=== PATIENT | female | born 1940 | race Caucasian/White ===

== ENCOUNTER → 2024-05-25 11:52 | Outpatient (REF) | payer OTHER, SELFPAY | LOC: HWRAD 11:52 | PROVIDERS: ATTENDING PHYSICIAN Internal Medicine Geriatric Medicine | DX: M19.90 Unspecified osteoarthritis, unspecified site (principal) | CPT/HCPCS: 73560; 73565 ==

== ENCOUNTER → 2024-08-14 16:43 | Outpatient (REF) | payer OTHER, SELFPAY | LOC: HWRAD 16:43 | PROVIDERS: ATTENDING PHYSICIAN Nurse Practitioner Adult Health; FAMILY PHYSICIAN Internal Medicine Geriatric Medicine | DX: M79.671 Pain in right foot (principal) | CPT/HCPCS: 73630 ==

== ENCOUNTER → 2024-10-29 13:25 | Outpatient (REF) | payer OTHER, SELFPAY | LOC: HWRAD 13:25 | PROVIDERS: ATTENDING PHYSICIAN Internal Medicine; FAMILY PHYSICIAN Internal Medicine Geriatric Medicine | DX: M25.571 Pain in right ankle and joints of right foot (principal) | CPT/HCPCS: 73610 ==

== ENCOUNTER → 2024-11-06 15:08 | Outpatient (REF) | payer OTHER, SELFPAY | LOC: HWRAD 15:08 | PROVIDERS: ATTENDING PHYSICIAN Internal Medicine Geriatric Medicine | DX: M19.90 Unspecified osteoarthritis, unspecified site (principal); M25.552 Pain in left hip | CPT/HCPCS: 73522 ==

== ENCOUNTER → 2024-11-18 09:31 | Outpatient (REF) | payer OTHER, SELFPAY | LOC: HWRAD 09:31 | PROVIDERS: ATTENDING PHYSICIAN Internal Medicine Geriatric Medicine | DX: M51.9 Unspecified thoracic, thoracolumbar and lumbosacral intervertebral disc disorder (principal) | CPT/HCPCS: 72100 ==

== ENCOUNTER → 2025-02-04 11:46 | Outpatient (REF) | payer OTHER, SELFPAY | LOC: PAVMRI 11:46 | PROVIDERS: ATTENDING PHYSICIAN Internal Medicine Geriatric Medicine | DX: D18.09 Hemangioma of other sites (principal); M54.31 Sciatica, right side | CPT/HCPCS: 72158; A9575 ==

== ENCOUNTER → 2025-02-15 07:18 | Outpatient (REF) | payer OTHER, SELFPAY | LOC: HWRAD 07:18 | PROVIDERS: ATTENDING PHYSICIAN Student in an Organized Health Care Education/Training Program | DX: I10 Essential (primary) hypertension (principal) | CPT/HCPCS: 93975 ==

== ENCOUNTER 2025-05-10 01:17 | Inpatient (IN) | payer OTHER, SELFPAY ==
[2025-05-09 19:43] VITALS: BP 131/85
[2025-05-09 20:49] VITALS: BMI 27.5
--- NOTE | 2025-05-09 20:50 | EDRN ---
Pt reports urinary urgency yesterday and blood in uirne, called Dr at [facility] and started on Macrobid. Pt has had 3 doses and noticed no blood hematuria. Pt reports developing a fever at home today of 102. Pt did not take any antipyretics for
the fever. Pt called [facility] physician and was advised to come to the ED. Pt with no other complaints. Pt without fever here in ED x 2.
[2025-05-09 21:45] LABS: Hematocrit 37.5 % (37.0-47.0); Hemoglobin 13.3 g/dL (12.0-16.0); Mean Corp Hgb Conc. 35.5 g/dL (33.0-37.0); Mean Corpuscular Volume 85.0 fL (81.0-99.0); Nucleated Red Blood Cells % 0 %; Platelet Count 209 10^3/uL (130-400); Red Cell Dist. Width 12.8 % (11.5-14.5)
--- NOTE | 2025-05-09 22:00 | ED.GENMED ---
History of Present Illness
General
Chief Complaint: Urinary Symptoms
Time Seen by Provider: 05/09/25 22:00
History of Present Illness
History of Present Illness:
FOCUSED PAST MEDICAL HISTORY
- High blood pressure
REVIEW OF OLD RECORDS
- No old records available for review in [facility]
Note:
CHIEF COMPLAINT(S)
Difficulty urinating, hematuria, fever, and vomiting.
HISTORY OF PRESENT ILLNESS
The patient is an 84-year-old female with a reported history of previous urinary tract infections (UTIs) presenting with symptoms suggestive of a recurrent UTI. The patient began experiencing difficulty urinating and the presence of blood in her
urine on Saturday, which has led to concern for a UTI, a condition she has experienced thrice in the past four months. On Saturday, she experienced two episodes of hematuria, first at 12 PM and then at 1 PM. In response, a doctor at her residence
prescribed nitrofurantoin for a presumed UTI, of which she has taken three doses.
The patient sought emergency care due to the onset of a fever of 102�F at 4 PM, coupled with an episode of vomiting following fluid intake. She has experienced intense thirst but has been reluctant to drink further before evaluation. The patient
reports having difficulty holding urine despite the urge. She has not had a definitive urinalysis or urine culture since the onset of her current symptoms and previously had a urinalysis indicative of infection but with undetermined urine culture
results. The patient is concerned about her third infection in a short duration and is open to a catheterized urine specimen if necessary for accurate analysis.
Her blood pressure medication includes diltiazem and hydrochlorothiazide. She has not experienced any mental status changes or confusion; however, she reports a previous episode of confusion related to a UTI in the past. Laboratory findings from the
ED show a sodium level of 124, with a known history of lower sodium levels in the past, attributed potentially to chronic use of hydrochlorothiazide.
ALLERGIES
Allergic to Ciprofloxacin.
MEDICATIONS
- Nitrofurantoin
- Diltiazem (12-hour formulation) � specific dose not specified
- Atenolol 50 mg, twice a day
- Losartan potassium
- Hydrochlorothiazide (noted to potentially cause hyponatremia; recommendation to discontinue)
- Acetaminophen 650 mg
PHYSICAL EXAM
General: Alert, no acute distress.
Skin: Warm, dry.
Head: Normocephalic, atraumatic.
Neck: Supple, trachea midline.
Eye Ears, nose, mouth and throat: Oral mucosa moist.
Cardiovascular: Normal peripheral perfusion, No edema.
Respiratory: Respirations are non-labored.
Gastrointestinal: Abdomen nondistended. No abdominal tenderness
Back: Normal range of motion, Normal alignment.
Musculoskeletal: Normal ROM, normal strength.
Neurological: Alert and oriented to person, place, time, and situation, No focal neurological deficit observed.
Psychiatric: Cooperative, appropriate mood & affect. Excellent mental status, no confusion
PROBLEM LIST
Acute Problems:
- Urinary tract infection
- Fever
- Hyponatremia
- Vomiting
Chronic Problems:
- Hypertension
PLAN
- Obtain catheterized urine specimen for accurate urinalysis and culture.
- Initiate blood cultures to rule out potential bloodstream infection due to persistent fever.
- Monitor and manage hyponatremia potentially exacerbated by hydrochlorothiazide; discontinue use of hydrochlorothiazide.
- Continue nitrofurantoin for presumed UTI, pending culture results.
- Reassess fluid and sodium levels to manage current mild hyponatremia.
- Monitor and address any recurrence or persistence of fever with further investigation, if necessary.
DIFFERENTIAL DIAGNOSIS
The Differential Diagnosis includes, in no particular order and is not limited to:
- Lower urinary tract infection
- Pyelonephritis
- Urosepsis
- Medication-induced hyponatremia (due to hydrochlorothiazide)
- Dehydration or overhydration affecting sodium balance
- Nephrolithiasis
- Interstitial cystitis
- Urinary retention due to medication effect
- Hematuria secondary to anticoagulation (though no current use reported)
- Fever of unknown origin linked to systemic infection
Disposition:
SUMMARY OF ENCOUNTER
The patient, an 84-year-old female, presented to the emergency department with symptoms suggestive of a urinary tract infection (UTI), including increased white blood cells in the urine analysis. The patient has been experiencing low sodium levels,
reported at 124 mEq/L, which is concerning. She has a history of lower sodium attributed to chronic hydrochlorothiazide use, likely exacerbated by recent vomiting. Nitrofurantoin has already been initiated by the patient herself for the presumed
UTI. Due to the complexity of managing the low sodium and pending urine culture results, the decision was made to admit the patient for further evaluation and management by the internal medicine team. The patients current symptoms and test results,
particularly the significant hyponatremia, necessitate close monitoring in the hospital setting.
DISPOSITION
Admit.
ASSESSMENT
The patient is assessed with a presumptive urinary tract infection awaiting urine culture confirmation, coupled with significant hyponatremia that requires inpatient management to address potential complications from both the infection and
hyponatremia.
PLAN
- Admit the patient to the hospital for further evaluation and management by the internal medicine team.
- Continue intravenous antibiotic treatment for the UTI.
- Monitor the patients sodium levels closely and manage hyponatremia to prevent potential complications.
- Await urine culture results to confirm the diagnosis and guide antibiotic therapy.
- Use non-invasive urine collection with the [employer] system to manage urinary output.
MEDICAL DECISION MAKING
- Number and Complexity of Problems Addressed: Chronic conditions affecting care include recurrent urinary tract infections and hyponatremia. Differential diagnosis considerations include lower urinary tract infection, medication-induced
hyponatremia, dehydration, and urinary retention.
- Data:
- Category 1: The urine analysis indicated an increased number of white blood cells suggestive of an infection, and hyponatremia was confirmed with sodium levels of 124 mEq/L.
- Category 2: Not applicable.
- Category 3: Discussion of management with the internal medicine team regarding admission and management plan for hyponatremia and UTI.
- Risk: Due to the significant hyponatremia and need for close monitoring, the decision was made to admit the patient to the hospital. Prescription drug management included continuing nitrofurantoin and administering intravenous antibiotics.
LABS
- White count 14.7
- Sodium 124
- Urinalysis 16-20 white cells per high-power field but also has increased number of squamous epithelial cells
UPDATE
- Leukocytosis is noted and she reportedly had a temperature of over 102 earlier today. She is afebrile currently and is not tachycardic and is normotensive.
- Lactic is 1.7
- Sodium is 124 and reportedly was 'just slightly low in the past'�she is on hydrochlorothiazide and was reportedly vomiting earlier suspect hypovolemic hypotonic hyponatremia
- As she has been vomiting earlier and remains to have symptoms despite being on outpatient oral antibiotics, will plan admission to the hospital for further evaluation of hyponatremia and IV antibiotics for presumed UTI failing outpatient management
Phy Exam
Physical Exam
Physical Exam:
See HPI
Course
Orders/Labs/Results
Orders:
Orders
05/09/25 21:38
Complete Blood Count/With Diff Urgent
Comprehensive Metabolic Panel Urgent
Serum Osmolality Urgent
Comment: ADD ON
05/09/25 22:13
Add On- LAB Urgent
Tests Added?: serum osm
Straight cath- Treatment ONCE
0.9% Sodium Chloride 500 ml [Nss] 500 ml IV BOLUS
05/09/25 22:33
Lactic Acid Q4H
Comment: CANCEL 2nd LACTIC ACID IF 1st LACTIC ACID IS LESS THAN 2
Urinalysis Reflex To Culture Urgent
Date Specimen was Collected: 05/09/25
Time Specimen was Collected: 21:31
Urine Microscopic Reflex Cult Urgent
Urine Osmolality Random [Osmolality, Random Urine] Urgent
Date Specimen was Collected: 05/09/25
Time Specimen was Collected: 22:16
Urine Sodium Urgent
Date Specimen was Collected: 05/09/25
Time Specimen was Collected: 22:16
Blood Culture Q30M
[facility] Source: Blood/Venous
Specimen Description:
Blood Culture Q30M
[facility] Source: Blood/Venous
Specimen Description:
Urine Culture Urgent
[facility] Source: U
Specimen Description:
Date Specimen was Collected: 05/09/25
Time Specimen was Collected: 21:31
05/09/25 22:53
CefTRIAXone [Rocephin] 1,000 mg IV NOW STA
05/10/25 02:15
Lactic Acid Q4H
Comment: CANCEL 2nd LACTIC ACID IF 1st LACTIC ACID IS LESS THAN 2
Abnormal Lab Results
05/09/25 05/09/25
21:38 22:33
WBC 14.7 H 10^3/uL
(4.8-10.8)
Abs Immat Gran (auto) 0.1 H 10^3/uL
(0-0.05)
Absolute Neuts (auto) 13.0 H 10^3/uL
(1.4-6.5)
Absolute Lymphs (auto) 0.9 L 10^3/uL
(1.2-3.4)
Neutrophils % 88.3 H %
(42.2-75.2)
Lymphocytes % 6.1 L %
(20.5-51.1)
Sodium 124 L mmol/L
(135-145)
Chloride 93 L mmol/L
(98-107)
Glucose 116 H mg/dl
(70-99)
Serum Osmolality 263 L mOsm/kg
(275-300)
Total Bilirubin 1.7 H mg/dl
(0.2-1.3)
AST 38 H U/L
(14-36)
ALT 41 H U/L
(0-35)
Ur Occult Blood Reflex 1+ A
(Negative)
Urine RBC 3-6 A /HPF
(0-2)
Urine WBC (Reflex) 16-20 A /HPF
(0-5)
Urine Bacteria (Reflex) Few A
(Negative)
Urine Osmolality 248 L mOsm/kg
(300-900)
Urine Sodium 10 L mmol/L
(30-90)
Urine Albumin (Reflex) 1+ A
(Neg - Trace)
05/09/25 21:38
05/09/25 21:38
Vital Signs
Initial and Last Documented VS:
Initial Vital Signs
Temp Pulse Resp BP Pulse Ox
37.3 C 81 16 131/85 96
05/09/25 19:43 05/09/25 19:43 05/09/25 19:43 05/09/25 19:43 05/09/25 19:43
Last Documented Vital Signs
Temp Pulse Resp BP Pulse Ox
37.0 C 74 20 143/66 98
05/09/25 22:57 05/09/25 22:57 05/09/25 22:57 05/09/25 22:57 05/09/25 22:57
*Pulse Oximetry
SaO2: 96
Oxygen Mode of Delivery: Room air
Patient hypoxic: no
*Critical Care Note
Total Time (30-74mins, 75-104mins- exclusive of procedures): Not Applicable
ED Attending Note
-
Portions of this chart may have been created with voice recognition software.� Occasional wrong word or��sound alike� substitutions may have occurred due to the inherent limitations of voice recognition software.
Discharge Plan
Departure
Patient Disposition: Admit
Date of Disposition: 05/09/25
Time of Disposition: 23:21
Presentation/result/management discussed w/ accepting MD/DO: Hospitalist
Discharge Problem:
Acute hyponatremia
Referrals:
Raul Sanchez DO [Family Provider, Family Practice]
Interventions
Interventions:
*Risk Screen - Suicide Last Done: 05/09/25 19:43
*General Assessment Last Done: 05/09/25 20:49
*Neglect/Abuse Screening Last Done: 05/09/25 19:43
*ED COVID-19 Vaccine History Last Done: 05/09/25 20:49
*ED Influenza Vaccine History Last Done: 05/09/25 20:49
[facility] Fall Risk Assessment Tool Last Done: 05/09/25 20:16
ED-Female Genitourinary Assessment Last Done: 05/09/25 20:49
Discharge Date and Time
Print Language: LATVIAN
[2025-05-09 22:03] LABS: ALT (SGPT) 41 U/L (0-35); AST (SGOT) 38 U/L (14-36); Albumin 4.4 g/dl (3.5-5.0); Alkaline Phosphatase 84 U/L (38-126); Blood Urea Nitrogen 16 mg/dl (7-17); Calcium 9.6 mg/dl (8.4-10.2); Carbon Dioxide 22 mmol/L (22-30); Chloride 93 mmol/L (98-107); Estimated Creatinine Clearance 53 ml/min; Glucose 116 mg/dl (70-99); Potassium 3.8 mmol/L (3.5-5.1); Sodium 124 mmol/L (135-145); Total Protein 7.5 g/dl (6.3-8.2); eGFR > 60.00
[2025-05-09] MEDS: NSS 500 IV (22:37)
[2025-05-09 22:44] LABS: Urine Character Clear (Clear)
[2025-05-09 22:51] LABS: Urine Squamous Cell 21-25 /LPF (Few); Urine White Cell 16-20 /HPF (0-5)
[2025-05-09 22:57] VITALS: BP 143/66
[2025-05-09] MEDS: ROCEPHIN 1000 MG IV (23:20)
[2025-05-10] VITALS (12 sets, daily range): BP systolic 118–141; BP diastolic 47–59; BMI 27.9
--- NOTE | 2025-05-10 01:13 | HPS.HSE ---
Family Physician
-
Family Physician: Raul Sanchez, DO
Chief Complaint
-
Urinary Symptoms, Fever
History of Present Illness
Patient is an 84y F with PMH significant for hypertension who presents to ED complaining of urinary symptoms x 2 days and fever. Patient states that she has had dysuria and bloody urine on three occasions over the past 4 months. She has been
treated for UTI each time with temporary improvement in her symptoms. Patient noted burning on urination / suprapubic pain beginning yesterday. She had two episodes of gross blood in the urine and contacted her PCP. She was prescribed Macrobid
and took two doses yesterday and one this AM. She states that the dysuria and bleeding seemed to improve. She was extremely fatigued however and slept for most of the day today.
This evening she felt warm and took her temperature at home. This measured 102 degrees. She presented to the ED for further evaluation and treatment.
Patient traveled to see family about 2 weeks ago and developed b/l LE swelling. Her PCP prescribed Lasix 20mg daily x 1 week which she has since completed. She is chronically on HCTZ.
Medical History
Past Medical History
Past Medical History: Reports Other
Additional Past Medical History:
Hypertension
Scoliosis
Past Surgical History: Reports Other
Additional Past Surgical History:
BSO
Spinal Fusion
Social History
Tobacco: Non-smoker
Alcohol: Occasional
Drug: None
Family History
Family History: Not pertinent
Allergies / Home Medications
Allergies reflects when Allergies were last updated in [facility].
Home Medications with original date entered in [facility]
Allergy/Medication List:
Allergies
Allergy/AdvReac Type Severity Reaction Status Date / Time
amlodipine Allergy Unknown Verified 05/09/25 19:42
bee venom protein (honey bee) Allergy Rash Verified 05/09/25 19:42
ciprofloxacin (From Cipro) Allergy Rash Verified 05/09/25 19:39
enalapril Allergy Shortness Verified 05/09/25 19:42
of Breath
estrogens, conjugated (From Allergy Unknown Verified 05/09/25 19:42
Premarin)
herbal drugs (From [facility]) Allergy Unknown Verified 05/09/25 19:42
hydralazine Allergy Unknown Verified 05/09/25 19:42
multivitamin with minerals Allergy Unknown Verified 05/09/25 19:42
(From [facility])
nebivolol (From [facility]) Allergy Unknown Verified 05/09/25 19:42
Home Medications
atenolol 50 mg tablet 50 mg PO BID 05/09/25
cholecalciferol (vitamin D3) 50 mcg (2,000 unit) tablet (Vitamin D3) 50 mcg PO DAILY 05/09/25
diltiazem HCl 120 mg capsule,extended release 12 hr 120 mg PO Q12H 05/09/25
epinephrine 0.3 mg/0.3 mL injection, auto-injector (EpiPen) 0.3 mg IM ONCE PRN anaphylaxis 05/09/25
estradiol 0.01% (0.1 mg/gram) vaginal cream 1 appful vaginal DAILY 05/09/25
hydrochlorothiazide 25 mg tablet 25 mg PO DAILY 05/09/25
losartan 50 mg tablet 50 mg PO QPM 05/09/25
rwmvtadj-snos-dlvn 8 mg-folic 400 mcg-K 50 mcg-lutein 300 mcg tablet (Centrum Silver Women) 1 tab PO DAILY 05/09/25
nitrofurantoin macrocrystal 100 mg capsule 100 mg PO BID 05/09/25
rosuvastatin 5 mg tablet 5 mg PO DAILY 05/09/25
tacrolimus 0.1 % topical ointment 1 applic topical DAILY PRN as needed 05/09/25
tretinoin 0.1 % topical cream 1 applic topical HS 05/09/25
triamcinolone acetonide 0.1 % topical cream 1 applic topical BID 05/09/25
Review of Systems
-
History Source: Patient
A 12 point ROS was completed and negative except as noted: Yes
Constitutional: Reports Fever and Fatigue; Denies Chills
EENT: Denies Sore Throat
Respiratory: Denies Cough or Trouble Breathing
Cardiac: Denies Chest Pain or Palpitations
Abdomen/GI: Denies Abdominal Pain, Nausea, Vomiting or Diarrhea
: Reports Dysuria, Frequency and Bleeding
Musculoskeletal: Reports Edema; Denies Joint Pain
Neurological: Denies Dizzy or Headache
Psych: Denies Depression or Anxiety
Physical Exam
Vital Signs
Vital Signs
Temp Pulse Resp BP Pulse Ox
98.3 F 73 22 131/55 97
05/10/25 00:47 05/10/25 00:47 05/10/25 00:47 05/10/25 00:46 05/10/25 00:45
Physical Exam
General: Other (84y F in no acute distress.)
HEENT: Moist mucous membranes and PERRLA
Respiratory: Clear; No Wheezes, Rales or Rhonchi
Cardiac: S1/S2 and Regular Rhythm; No Murmur
GI: Soft, Non Tender, Non Distended and Normal Bowel Sounds
Genito-urinary: No costovertebral tender
Musculoskeletal: No Clubbing, No Cyanosis and No Edema
Neuro: AO x 3
Laboratory Results
-
05/09/25 21:38
05/09/25 21:38
Laboratory Results
Lactic Acid Cancelled 05/10/25 02:15
Total Bilirubin 1.7 mg/dl (0.2-1.3) H 05/09/25 21:38
AST 38 U/L (14-36) H 05/09/25 21:38
ALT 41 U/L (0-35) H 05/09/25 21:38
Alkaline Phosphatase 84 U/L (38-126) 05/09/25 21:38
Impression/Plan
-
A/P: Patient is an 84y F with PMH significant for hypertension who presents to ED complaining of urinary symptoms and fever.
Recurrent UTI / Fever
- Admit of further evaluation and treatment.
- Fever / failed outpatient treatment of UTI and recent recurrent UTI (3 in 4 months).
- Check CT to rule out anatomic abnormality contributing to recurrent UTI, obstruction, etc.
- IV ceftriaxone pending culture data.
- Follow fever curve. Follow for clinical improvement.
Hyponatremia
- Likely due to combination HCTZ and Lasix over the past week or so.
- Hold diuretics acutely.
- Follow for improvement in Na levels.
Benign Hypertension
- Multidrug resistant hypertension
- Continue usual regimen (excepting HCTZ) with holding parameters.
DVT Prophylaxis: Lovenox
Code Status: Full
[2025-05-10 03:22] LABS: Hematocrit 36.1 % (37.0-47.0); Hemoglobin 12.4 g/dL (12.0-16.0); Mean Corp Hgb Conc. 34.3 g/dL (33.0-37.0); Mean Corpuscular Volume 85.7 fL (81.0-99.0); Platelet Count 207 10^3/uL (130-400); Red Cell Dist. Width 12.8 % (11.5-14.5)
--- NOTE | 2025-05-10 03:35 | PTCARENOTE ---
Received pt from ED @ 0230. AAOx3, VSS, afebrile. Medications brought from home sent to pharmacy. Pt denies pain @ this time. Discussed plan of care with pt. Verbalizes understanding. Plan of care ongoing. Call scanlon within reach.
[2025-05-10 03:46] LABS: Blood Urea Nitrogen 16 mg/dl (7-17); Calcium 9.1 mg/dl (8.4-10.2); Carbon Dioxide 24 mmol/L (22-30); Chloride 97 mmol/L (98-107); Estimated Creatinine Clearance 53 ml/min; Glucose 96 mg/dl (70-99); Potassium 3.5 mmol/L (3.5-5.1); Sodium 128 mmol/L (135-145); eGFR > 60.00
[2025-05-10] MEDS: VITAMIN D3 (cholecalciferol) 50 MCG PO (07:38)
[2025-05-10] MEDS: TENORMIN 50 MG PO ×2 (07:38→19:48)
[2025-05-10] MEDS: CARDIZEM CD 120 MG PO ×2 (07:38→19:47)
[2025-05-10] MEDS: CRESTOR 5 MG PO (07:40)
--- NOTE | 2025-05-10 09:19 | W.PN.HOSP.TC ---
Today's Communication/Plan
-
Antibiotics. Diuretics.
Assessment / Plan
Assessment / Plan
Physical exam:
General: Acutely ill. Nontoxic appearing
HEENT: Normocephalic, Atraumatic and Moist Mucous Membranes
Respiratory: Clear to Auscultation; Negative Wheezes, Rales or Rhonchi
Cardiac: Regular Rhythm and S1/S2
GI: Soft, Nontender and Nondistended
Musculoskeletal: No Clubbing, No Cyanosis and No Edema
Neuro: Awake, Alert and Oriented, no neurological deficit
Psych: Calm
A/P:
Recurrent UTI:
Continue IV ceftriaxone
Follow-up urine culture
CT of the abdomen with abnormalities likely related to infection--> will reach out to urology to see what they recommend.
Recommend outpatient urology eval for urodynamic studies
Shortness of breath and peripheral edema:
Concerns for heart failure
Obtain echocardiogram
Obtain chest x-ray
Obtain BNP
Diuresis as needed
Cardiology eval
Hyponatremia:
Discontinue HCTZ
Proceed to hyponatremia workup with serum osmolarity, urine osmolality, urine sodium, urine creatinine, TSH, and cortisol.
Hypertension:
Continue home antihypertensive
Hyperlipidemia:
Continue home statin
Chronic back pain:
Continue pain control
DVT prophylaxis:
Lovenox SQ
CODE STATUS:
Full code
Total time spent on today's encounter was 35 minutes which included time spent in counseling the patient/family regarding diagnosis and treatment plan as listed above, goals of care, and symptom management. Case was discussed with nursing staff,
specialists, and care coordinators/case management. All labs and imaging personally reviewed by me. Remainder the time spent in detailed review of previous records, lab data, imaging, and other medical provider documentation.
Anticipated Discharge: 24 - 48 hours
Subjective/Interval History
-
Date of Service: May 10, 2025
Patient does have peripheral edema and also urinary tract symptoms
Objective Data
-
Labs:
Laboratory Results
05/09/25 05/10/25
21:38 03:05
WBC 14.7 H 10.2
Hgb 13.3 12.4
Hct 37.5 36.1 L
Plt Count 209 207
Sodium 124 L 128 L
Potassium 3.8 3.5
Chloride 93 L 97 L
Carbon Dioxide 22 24
BUN 16 16
Creatinine 0.7 0.7
Glucose 116 H 96
Calcium 9.6 9.1
Total Bilirubin 1.7 H
AST 38 H
ALT 41 H
Alkaline Phosphatase 84
Vital Signs:
Vital Signs
Temp Pulse Resp BP Pulse Ox
98.1 F 78 17 141/54 98
05/10/25 07:34 05/10/25 01:09 05/10/25 07:34 05/10/25 07:34 05/10/25 07:34
--- NOTE | 2025-05-10 11:21 | CM ---
Reviewed chart. Met with Mrs. Bird to review discharge plans. She states prior to admission she resides alone in an apartment at [facility]. She states she has been there for seven years., She states prior to admission
she ambulates independent in the apartment and uses a single point cane for short distances , and uses a motorized wheelchair for long distances. She states she has a single point cane and motorized wheelchair at home. she states she has never
need VNA Services or been to SNF/Rehab. She states she has gone to outpatient therapy at [facility]. She states she has a prescription plan and uses [facility]. Medical work-up in progress. The discharge plan is to retunr to her
apartment at [facility] when medically stable.
--- NOTE | 2025-05-10 14:16 | CON.CAR ---
Addendum entered and electronically signed by Raul Durand MD 05/10/25 15:30:
84-year-old woman admitted with dysuria hematuria and fever, had been treated for lower extremity edema without dyspnea, evaluation in the emergency department revealed proBNP of 455 with chest x-ray suggesting congestive heart failure. Of note,
patient complains of lower extremity edema on diltiazem, but does not have complaints of shortness of breath, allergies include Nebivolol enalapril and amlodipine.
Outpatient meds: Atenolol 50 mg twice daily, diltiazem CD1 120 mg twice daily, hydrochlorothiazide 25 mg a day, losartan 100 mg daily,
Current meds: Atenolol 50 mg twice daily, diltiazem CD1 120 mg every 12, losartan 100 mg a day, rosuvastatin 5 mg daily, ceftriaxone 1000 mg daily, subcu Lovenox DVT prophylaxis and furosemide 40 mg IV daily
PMH: Hypertension, hyperlipidemia, scoliosis
PSH: Spinal fusion, retinal detachment, bilateral salpingoectomy
SH: , recently traveled to [facility]
141/54, pulse 78, weight is 67 kg, head neck exam unremarkable, lungs are clear, regular rate and rhythm without obvious murmurs or gallops abdomen benign extremities without clubbing cyanosis or edema
Chest x-ray: Probable vascular congestion, cardiomegaly, aortic atherosclerosis
White count 10.2, hemoglobin 12.4, sodium 128, had been 124 on admission potassium is 3.5, BUN/creatinine are 16 and 0.7, AST and ALT 38 and 41 respectively, free T4 is normal, TSH is 4.71,
CT of abdomen
ECG: Pending
Impression:
Possible HFpEF, with increased interstitial markings lung with proBNP 455
Hypertension
Hyponatremia on thiazide
Aortic atherosclerosis
Plan:
She presents with findings that could be consistent with heart failure, but her proBNP is not markedly elevated, and her chest x-ray findings could be consistent with heart failure, but we may need to consider pulmonary fibrosis as well. She
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
For now okay to continue IV Lasix, check echocardiogram.
Given hyponatremia, hydrochlorothiazide should be listed as an allergy.
She states that her blood pressure is elevated, will check plasma renin and Roney levels, the patient is currently on an ARB and also on a beta-shruthi. Spironolactone might be a good choice if she needs additional blood pressure agents and for
diagnosis of presumed HFpEF
If diagnosis of HFpEF stands up, she is a poor candidate for an SGLT2 antagonist given frequent urinary tract infections.
I will check a troponin x 1.
We can consider an outpatient ischemic evaluation.
Original Note:
Consultation
Consultation Request
Date/Time Consultation Requested: 05/10/2025
Date/Time Consultation Performed: 05/10/2025
Requesting Provider: Dr. Carmona
Performing Provider: Aurea Carson PA-C for Dr. EVANS Durand
Reason for Consultation: Possible acute HF
Medical History
-
History of Present Illness:
HPI: Florence is an 84 year old female with PMH of HTN, HLD, and scoliosis who presented to [facility] ER for evaluation of dysuria, hematuria, and fever. She had been seen by her PCP who started her on macrobid, but with fever, she came to ER for
evaluation. Also has noted a few weeks of increased LE edema. She states this started after she traveled to [facility] for [employer]. Initially felt it may have been related to a long day of travel but as edema persisted, when seen by PCP,
she was started on lasix 20mg daily in addition to her usual HCTZ. With this, she noted no significant improvement in her edema, and after 1 week was told to stop taking lasix. She also has been keeping her legs elevated and using compression
stockings without significant improvement. Denies noting SOB, but reports she does not exert herself significantly. No prior cardiac history and has never been seen by cardiology. Chest xray checked this admission and noted moderate pulmonary edema.
ProBNP 455. Cardiology consulted for evaluation of possible heart failure.
PMH:
HTN
HLD
Scoliosis
Past Medical History
Past Medical History: Other (In HPI)
Social History
Tobacco: Non-Smoker
Alcohol: Occasional
Drug: None
Employment: Retired
Family History
Family History: Reviewed & Not Pertinent
Allergies / Home Medications
Allergy/AdvReac Type Severity Reaction Status Date / Time
amlodipine Allergy Unknown Verified 05/09/25 19:42
bee venom protein (honey bee) Allergy Rash Verified 05/09/25 19:42
ciprofloxacin (From Cipro) Allergy Rash Verified 05/09/25 19:39
enalapril Allergy Shortness Verified 05/09/25 19:42
of Breath
estrogens, conjugated (From Allergy Unknown Verified 05/09/25 19:42
Premarin)
herbal drugs (From [facility]) Allergy Unknown Verified 05/09/25 19:42
hydralazine Allergy Unknown Verified 05/09/25 19:42
multivitamin with minerals Allergy Unknown Verified 05/09/25 19:42
(From [facility])
nebivolol (From Bystolic) Allergy Unknown Verified 05/09/25 19:42
�Medication �Instructions �Recorded �Confirmed �Type
atenolol 50 mg tablet 50 mg PO BID 05/09/25 05/09/25 History
cholecalciferol (vitamin D3) 50 50 mcg PO DAILY 05/09/25 05/09/25 History
mcg (2,000 unit) tablet (Vitamin
D3)
epinephrine 0.3 mg/0.3 mL 0.3 mg IM ONCE PRN anaphylaxis 05/09/25 05/09/25 History
injection, auto-injector (EpiPen)
estradiol 0.01% (0.1 mg/gram) 1 appful vaginal DAILY 05/09/25 05/09/25 History
vaginal cream
hydrochlorothiazide 25 mg tablet 25 mg PO DAILY 05/09/25 05/09/25 History
losartan 50 mg tablet 100 mg PO QPM 05/09/25 05/10/25 History
tpmahlim-zmvk-laud 8 mg-folic 400 1 tab PO DAILY 05/09/25 05/09/25 History
mcg-K 50 mcg-lutein 300 mcg tablet
(Centrum Silver Women)
nitrofurantoin macrocrystal 100 mg 100 mg PO BID 05/09/25 05/09/25 History
capsule
rosuvastatin 5 mg tablet 5 mg PO DAILY 05/09/25 05/09/25 History
tacrolimus 0.1 % topical ointment 1 applic topical DAILY PRN as 05/09/25 05/09/25 History
needed
tretinoin 0.1 % topical cream 1 applic topical HS 05/09/25 05/09/25 History
triamcinolone acetonide 0.1 % 1 applic topical BID 05/09/25 05/09/25 History
topical cream
diltiazem HCl 120 mg capsule,24 120 mg PO BID Arrhythmia 05/10/25 05/10/25 History
hr,extended release
Review of Systems
-
History Source: Patient
All other systems: Negative unless noted
Physical Exam
Vital Signs
Temp Pulse Resp BP Pulse Ox
98.1 F 78 17 141/54 98
05/10/25 07:34 05/10/25 01:09 05/10/25 07:34 05/10/25 07:34 05/10/25 08:00
Lab Results
05/10/25 03:05
05/10/25 03:05
Iim-C-Gtgynzpugmd Pept Cancelled 05/10/25 09:56
Physical Exam
General: Well Developed, Well Nourished and No Apparent Distress
HEENT: Normocephalic, Anicteric and Moist Mucous Membranes
Respiratory: Non Labored Respirations
Cardiac: S1/S2 and Regular Rhythm
Musculoskeletal: No Clubbing, No Cyanosis and Edema
Skin: Warm and Dry
Neuro: AO x 3 and Nonfocal/Grossly Intact
Psych: Calm
Impression / Plan
-
PCP: Dr. Sanchez
Market Development Analyst: None prior to admission, initially seen by Dr. EVANS Durand
Impression:
Presented with dysuria, fever
LE edema
Hyponatremia
Possible HF unknown EF
HTN
HLD
Scoliosis
Echo 05/10/2025: Study pending
Plan:
-Presented with dysuria. Admitted w/ UTI. Urine and blood cultures pending. Continue abx per primary service.
-Also noted increased LE edema over the past few weeks. ProBNP 455. Chest xray with moderate pulmonary edema.
-On HCTZ chronically as OP with recent 1 week course of lasix 20mg daily. Both on hold currently due to hyponatremia.
-Check echo.
-No EKG to review. Check EKG.
-Could consider IV lasix x1 to assess response pending results of echo. Creat stable at 0.7.
-Notes h/o difficult to control HTN w/ multiple medication intolerances/allergies. Has been seen by nephrology as OP. Currently on losartan, diltiazem, and atenolol and BP acceptable.
-TSH 4.71 with Free T4 1.11. Defer to primary service.
-No significant SOB. On RA.
-Will arrange cardiology follow up w/ our office as she would like to establish care and follow as OP.
HPI: Florence is an 84 year old female with PMH of HTN, HLD, and scoliosis who presented to [facility] ER for evaluation of dysuria, hematuria, and fever. She had been seen by her PCP who started her on macrobid, but with fever, she came to ER for
evaluation. Also has noted a few weeks of increased LE edema. She states this started after she traveled to [facility] for [employer]. Initially felt it may have been related to a long day of travel but as edema persisted, when seen by PCP,
she was started on lasix 20mg daily in addition to her usual HCTZ. With this, she noted no significant improvement in her edema, and after 1 week was told to stop taking lasix. She also has been keeping her legs elevated and using compression
stockings without significant improvement. Denies noting SOB, but reports she does not exert herself significantly. No prior cardiac history and has never been seen by cardiology. Chest xray checked this admission and noted moderate pulmonary edema.
ProBNP 455. Cardiology consulted for evaluation of possible heart failure.
Data Reviewed
-
Radiology: Report Reviewed by me
CT Scan: Report Reviewed by me
Labs: Labs Reviewed by me
Old Records: Reviewed
[2025-05-10] MEDS: LASIX 40 MG IV (15:38)
[2025-05-10] MEDS: COZAAR 100 MG PO (17:02)
[2025-05-10] MEDS: KCL 40 MEQ PO (21:17)
[2025-05-10] MEDS: STERILE WATER FOR INJECTION 10 ML IV (21:17)
[2025-05-10] MEDS: ROCEPHIN 1000 MG IV (21:17)
--- NOTE | 2025-05-11 01:17 | PTCARENOTE ---
Received pt @ change of shift. AAOx3, VSS-- NSR w/ BBB on monitor. Frequency and urgency resolved. K repleted. Discussed plan of care. Pt verbalizes understanding. Plan of care ongoing. Call scanlon within reach.
[2025-05-11 04:35] VITALS: BP 148/60
[2025-05-11 04:51] VITALS: BMI 27.6
[2025-05-11 05:33] LABS: Blood Urea Nitrogen 20 mg/dl (7-17); Calcium 9.6 mg/dl (8.4-10.2); Carbon Dioxide 25 mmol/L (22-30); Chloride 104 mmol/L (98-107); Estimated Creatinine Clearance 62 ml/min; Glucose 99 mg/dl (70-99); HDL Cholesterol 91 mg/dl; LDL Cholesterol, Calculated 45 mg/dl; Potassium 4.1 mmol/L (3.5-5.1); Sodium 135 mmol/L (135-145); Very Low Density Lipoprotein 11 mg/dl (0-30); eGFR > 60.00
[2025-05-11 05:45] LABS: Hematocrit 37.2 % (37.0-47.0); Hemoglobin 12.8 g/dL (12.0-16.0); Mean Corp Hgb Conc. 34.4 g/dL (33.0-37.0); Mean Corpuscular Volume 87.1 fL (81.0-99.0); Nucleated Red Blood Cells % 0 %; Platelet Count 227 10^3/uL (130-400); Red Cell Dist. Width 12.9 % (11.5-14.5); Troponin I < 0.012 ng/ml
[2025-05-11 05:56] LABS: Cortisol, Random 12.6 ug/dl
[2025-05-11 08:18] VITALS: BP 143/64
[2025-05-11] MEDS: LASIX 40 MG IV (08:32)
[2025-05-11] MEDS: CARDIZEM CD 120 MG PO ×2 (08:32→20:25)
[2025-05-11] MEDS: CRESTOR 5 MG PO (08:32)
--- NOTE | 2025-05-11 08:32 | W.PN.HOSP.TC ---
Today's Communication/Plan
-
Antibiotics. Repeat CT abdomen-Pelvis. Cardio reeval
Assessment / Plan
Assessment / Plan
Physical exam:
General: Acutely ill. Nontoxic appearing
HEENT: Normocephalic, Atraumatic and Moist Mucous Membranes
Respiratory: Clear to Auscultation; Negative Wheezes, Rales or Rhonchi
Cardiac: Regular Rhythm and S1/S2
GI: Soft, Nontender and Nondistended
Musculoskeletal: No Clubbing, No Cyanosis and No Edema
Neuro: Awake, Alert and Oriented, no neurological deficit
Psych: Calm
A/P:
Recurrent UTI:
Continue IV ceftriaxone
Follow-up urine culture no growth but suspect partially treated prior to cultures obtained.
CT of the abdomen with abnormalities likely related to infection--> discuss with urology. Will repeat CT abd-pelvis today.
Recommend outpatient urology eval for urodynamic studies
Shortness of breath and peripheral edema:
Concerns for heart failure - acute HFpEF and also ?ILD
Obtained echocardiogram and normal EF
Obtained chest x-ray and will repeat
Obtained BNP
Cont IV diuresis and change to oral
Cardiology eval appreciated
Hyponatremia:
Discontinue HCTZ
Proceed to hyponatremia workup with serum osmolarity, urine osmolality, urine sodium, urine creatinine, TSH, and cortisol.
Hypertension:
Continue home antihypertensive
Hyperlipidemia:
Continue home statin
Chronic back pain:
Continue pain control
DVT prophylaxis:
Lovenox SQ
CODE STATUS:
Full code
Total time spent on today's encounter was 35 minutes which included time spent in counseling the patient/family regarding diagnosis and treatment plan as listed above, goals of care, and symptom management. Case was discussed with nursing staff,
specialists, and care coordinators/case management. All labs and imaging personally reviewed by me. Remainder the time spent in detailed review of previous records, lab data, imaging, and other medical provider documentation.
Anticipated Discharge: Within 24 hours
Subjective/Interval History
-
Date of Service: May 11, 2025
Denies cp. Less sob. No fever
Objective Data
-
Labs:
Laboratory Results
05/11/25
04:49
WBC 7.2
Hgb 12.8
Hct 37.2
Plt Count 227
Sodium 135
Potassium 4.1
Chloride 104
Carbon Dioxide 25
BUN 20 H
Creatinine 0.6
Glucose 99
Calcium 9.6
Vital Signs:
Vital Signs
Temp Pulse Resp BP Pulse Ox
98.2 F 65 16 148/60 96
05/11/25 08:20 05/11/25 05:00 05/11/25 08:20 05/11/25 04:35 05/11/25 08:20
[2025-05-11] MEDS: TENORMIN 50 MG PO ×2 (08:33→20:25)
[2025-05-11] MEDS: VITAMIN D3 (cholecalciferol) 50 MCG PO (08:33)
--- NOTE | 2025-05-11 10:30 | CM ---
Reviewed chart. Met with Mrs. Bird to review discharge plans. She states she is feeling better and maybe able to go marium soon. We reviewed VNA Services and she states she does not feel she will need them. Prior to admission she resides alone
in an apartment at [facility] [address] [facility]. She has been there for seven years., Prior to admission she ambulates independent in the apartment and uses a single point cane for short distances , and uses a motorized wheelchair for long
distances. She has a single point cane and motorized wheelchair at home. She has never need VNA Services or been to SNF/Rehab. She has gone to outpatient therapy at [facility]. She has a prescription plan and uses [facility].
Medical work-up in progress. The discharge plan is to retunr to her apartment at [facility] [facility] when medically stable.
[2025-05-11 11:40] VITALS: BP 137/56
--- NOTE | 2025-05-11 13:27 | W.PN.CARDCBS ---
Addendum entered and electronically signed by Raul Durand MD 05/11/25 18:26:
84-year-old woman admitted with dysuria hematuria and fever, had been treated for lower extremity edema without dyspnea, evaluation in the emergency department revealed proBNP of 455 with chest x-ray suggesting congestive heart failure. Of note,
patient complains of lower extremity edema on diltiazem, but does not have complaints of shortness of breath, allergies include Nebivolol enalapril and amlodipine.
Outpatient meds: Atenolol 50 mg twice daily, diltiazem CD1 120 mg twice daily, hydrochlorothiazide 25 mg a day, losartan 100 mg daily
Current meds: Atenolol 50 mg twice daily, vitamin D3, diltiazem CD100 20 mg twice daily, losartan 100 mg daily, rosuvastatin 5 mg daily, ceftriaxone, enoxaparin, furosemide 40 mg a day, sodium chloride
143/64, pulse 69, respiratory rate 16, weight is 66.3 kg, down 0.7 kg, lungs are clear, edema much improved, regular rate and rhythm without murmurs abdomen benign, neck veins okay
ECG: Sinus rhythm, borderline QT, nonspecific T wave changes
Hemoglobin 12.8, platelets 227, sodium 135, potassium 4.1, BUN and creatinine are 20 and 0.6, LDL is 45, HDL is 91, random cortisol is 12.6, renin Roney levels are pending
Echo 05/10/2025: EF 59%, normal RV, trace aortic and mitral regurgitation, pulmonary pressure is normal
Impression:
Lower extremity edema, possible HFpEF
Hypertension
Resolved hyponatremia on hydrochlorothiazide
Hyperlipidemia
UTI
Plan:
She looks much improved. Blood pressure is still somewhat elevated. She is on both high dose atenolol and diltiazem. With IV furosemide, edema has resolved but diltiazem could be contributing to edema and could be problematic given high-dose
beta-blockade regarding heart rate, AV aravind conduction etc.
Her PRA level, aldosterone level and ratio are pending. It could be that spironolactone would be a very good drug for her. For now, we will await her lab results and then consider spironolactone. If we elect to start this, I would stop diltiazem.
Hyponatremia is much improved off hydrochlorothiazide.
Switch to oral furosemide 40 mg a day.
Will be interesting to recheck a chest x-ray in the morning.
Her echocardiogram is reassuring. It is essentially normal.
If all is well, would be okay for discharge from cardiac standpoint in AM. Currently on ceftriaxone for UTI.
Original Note:
Today's Communication / Plan
-
Renin/aldosterone pending
Transition to oral Lasix 40 mg in a.m.
Repeat chest x-ray in a.m.
BMP in a.m.
Impression / Plan
-
PCP: Dr. Sanchez
Commercial Sales Representative: None prior to admission, initially seen by Dr. EVANS Durand
Impression:
Presented 05/09/2025 with dysuria, fever
LE edema
Hyponatremia
Possible HF unknown EF
HTN
HLD
Scoliosis
Echo 05/10/2025: EF 59%. Normal RV size and systolic function. Trace AI, MR and TR.
Plan:
-Presented 05/09/2025 with dysuria. Admitted w/ UTI. Urine culture with no growth. Blood cultures no growth after 24 hours. Continue abx per primary service.
-Also noted increased LE edema over the past few weeks. ProBNP 455. Chest xray on admission with moderate pulmonary edema. Patient denying shortness of breath. Will repeat chest x-ray in a.m. to reassess for possible pulmonary edema versus
interstitial lung disease.
Weight unchanged this admission. Patient provided 2 doses of IV Lasix 40 mg. Feels well, denies shortness of breath. Currently no evidence of heart failure or volume overload. Transition to oral Lasix 40 mg in am
She is a poor candidate for an SGLT2 antagonist given frequent urinary tract infection
Noted to have hyponatremia on HCTZ. This has been discontinued. Would avoid in the future.
Echocardiogram as noted above shows preserved ejection fraction and no significant valve disease
EKG shows sinus rhythm without evidence of ischemia. Troponin undetectable. Patient denies chest pain
-Notes h/o difficult to control HTN w/ multiple medication intolerances/allergies.
Plasma renin and Roney level pending
Has been seen by nephrology as OP. Currently on losartan, diltiazem, and atenolol and BP acceptable. Consider discontinuing diltiazem and starting spironolactone given concern for heart failure and for blood pressure management. Await results of
plasma renin Roney aldosterone levels
Hyponatremia improved off hydrochlorothiazide.
-Will arrange cardiology follow up w/ our office as she would like to establish care and follow as OP.
HPI: Florence is an 84 year old female with PMH of HTN, HLD, and scoliosis who presented to [facility] ER for evaluation of dysuria, hematuria, and fever. She had been seen by her PCP who started her on macrobid, but with fever, she came to ER for
evaluation. Also has noted a few weeks of increased LE edema. She states this started after she traveled to [facility] for [employer]. Initially felt it may have been related to a long day of travel but as edema persisted, when seen by PCP,
she was started on lasix 20mg daily in addition to her usual HCTZ. With this, she noted no significant improvement in her edema, and after 1 week was told to stop taking lasix. She also has been keeping her legs elevated and using compression
stockings without significant improvement. Denies noting SOB, but reports she does not exert herself significantly. No prior cardiac history and has never been seen by cardiology. Chest xray checked this admission and noted moderate pulmonary edema.
ProBNP 455. Cardiology consulted for evaluation of possible heart failure.
Progress Note - Commercial Sales Representative
Subjective
Date of Service: May 11, 2025
Patient seen and examined. Sitting in chair reports she is feeling well. Currently denies shortness of breath.
Objective
Labs:
05/11/25 04:49
05/11/25 04:49
Labs
Hgb 12.8 g/dL (12.0-16.0) 05/11/25 04:49
Hct 37.2 % (37.0-47.0) 05/11/25 04:49
Plt Count 227 10^3/uL (130-400) 05/11/25 04:49
Sodium 135 mmol/L (135-145) 05/11/25 04:49
Potassium 4.1 mmol/L (3.5-5.1) 05/11/25 04:49
BUN 20 mg/dl (7-17) H 05/11/25 04:49
Creatinine 0.6 mg/dL (0.6-1.0) 05/11/25 04:49
Glucose 99 mg/dl (70-99) 05/11/25 04:49
Troponins
05/11/25
04:49
Troponin I < 0.012
Vital Signs and I&O:
Vital Signs
Temp Pulse Resp BP Pulse Ox
97.8 F 69 16 143/64 94
05/11/25 11:29 05/11/25 10:00 05/11/25 11:29 05/11/25 08:32 05/11/25 11:29
Vital Signs
Temp Pulse Resp BP Pulse Ox
97.8 F 69 16 143/64 94
05/11/25 11:29 05/11/25 10:00 05/11/25 11:29 05/11/25 08:32 05/11/25 11:29
Intake & Output
05/09/25 05/10/25 05/11/25 05/12/25
06:59 06:59 06:59 06:59
Output Total 650 / 650
Balance -650 / -650
Physical Exam
Physical Exam
GEN: No distress, awake, Ox3, sitting in chair on room air
HEENT: supple, anicteric, mmm
LUNGS: Faint crackles at bases otherwise CTA, no wheezes/rales
CV: Reg, S1/S2, no murmur, rub or gallop
ABD: soft, BS+, NT/ND
EXT: No edema, clubbing or cyanosis
NEURO: Gross non-focal
SKIN: No rash, warm, dry, pink
[2025-05-11 15:35] VITALS: BP 129/50
[2025-05-11] MEDS: COZAAR 100 MG PO (18:24)
--- NOTE | 2025-05-11 18:25 | PTCARENOTE ---
Pt refused Lovenox dose this evening, she is aware of the risks of blood clots and feels as though she is active and walking frequently enough.
[2025-05-11 19:14] VITALS: BP 127/66
[2025-05-11] MEDS: ROCEPHIN 1000 MG IV (21:49)
[2025-05-11] MEDS: STERILE WATER FOR INJECTION 10 ML IV (21:49)
[2025-05-11 22:33] VITALS: BP 157/61
[2025-05-12 04:23] VITALS: BP 150/53
[2025-05-12 04:36] VITALS: BMI 27.7
[2025-05-12 04:44] LABS: Hematocrit 37.4 % (37.0-47.0); Hemoglobin 12.9 g/dL (12.0-16.0); Mean Corp Hgb Conc. 34.5 g/dL (33.0-37.0); Mean Corpuscular Volume 87.6 fL (81.0-99.0); Nucleated Red Blood Cells % 0 %; Platelet Count 228 10^3/uL (130-400); Red Cell Dist. Width 13.0 % (11.5-14.5)
[2025-05-12 05:04] LABS: Blood Urea Nitrogen 22 mg/dl (7-17); Calcium 9.1 mg/dl (8.4-10.2); Carbon Dioxide 22 mmol/L (22-30); Chloride 105 mmol/L (98-107); Estimated Creatinine Clearance 62 ml/min; Glucose 94 mg/dl (70-99); Magnesium 2.1 mg/dl (1.6-2.3); Potassium 3.9 mmol/L (3.5-5.1); Sodium 134 mmol/L (135-145); eGFR > 60.00
[2025-05-12 07:13] VITALS: BP 164/64
[2025-05-12 07:15] VITALS: BP 165/67
[2025-05-12] MEDS: KEFLEX 500 MG PO (08:33)
[2025-05-12] MEDS: LASIX 40 MG PO (08:33)
[2025-05-12] MEDS: TENORMIN 50 MG PO (08:33)
[2025-05-12] MEDS: CARDIZEM CD 120 MG PO (08:33)
[2025-05-12] MEDS: CRESTOR 5 MG PO (08:33)
[2025-05-12] MEDS: VITAMIN D3 (cholecalciferol) 50 MCG PO (08:33)
--- NOTE | 2025-05-12 08:34 | W.PN.HOSP.TC ---
Today's Communication/Plan
-
Discharge planning today
Assessment / Plan
Assessment / Plan
Physical exam:
General: No acute distress
HEENT: Normocephalic, Atraumatic and Moist Mucous Membranes
Respiratory: Clear to Auscultation; Negative Wheezes, Rales or Rhonchi
Cardiac: Regular Rhythm and S1/S2
GI: Soft, Nontender and Nondistended
Musculoskeletal: No Clubbing, No Cyanosis and No Edema
Neuro: Awake, Alert and Oriented, no neurological deficit
Psych: Calm
A/P:
Recurrent UTI:
Change IV ceftriaxone to oral antibiotics.
Follow-up urine culture no growth but suspect partially treated prior to cultures obtained.
CT of the abdomen with abnormalities likely related to infection--> discussed with urology. Repeat CT of the abdomen pelvis and results improved substantially.
Recommend outpatient urology eval for urodynamic studies
Discussed with relative at patient's request who is a health care recruiter
Shortness of breath and peripheral edema:
Concerns for heart failure - acute HFpEF and also ?ILD
Obtained echocardiogram and normal EF
Obtained chest x-ray and repeated chest x-ray and show some improvement.
Obtained BNP and moderately elevated
IV diuresis changed to oral
Cardiology eval appreciated
Hyponatremia:
Discontinue HCTZ
Proceed to hyponatremia workup with serum osmolarity, urine osmolality, urine sodium, urine creatinine, TSH, and cortisol.
Hypertension:
Continue home antihypertensive
Patient is very concerned about changes on her antihypertensive regimen so she would like to discuss with cardiology in details about discharge meds upon discharge
Hyperlipidemia:
Continue home statin
Chronic back pain:
Continue pain control
DVT prophylaxis:
Lovenox SQ
CODE STATUS:
Full code
Total time spent on today's encounter was 35 minutes which included time spent in counseling the patient/family regarding diagnosis and treatment plan as listed above, goals of care, and symptom management. Case was discussed with nursing staff,
specialists, and care coordinators/case management. All labs and imaging personally reviewed by me. Remainder the time spent in detailed review of previous records, lab data, imaging, and other medical provider documentation.
Anticipated Discharge: Today
Subjective/Interval History
-
Date of Service: May 12, 2025
Patient is doing well today. She does have concerns about antihypertensives and she wants to discuss with cardiology.
Objective Data
-
Labs:
Laboratory Results
05/12/25
04:28
WBC 6.6
Hgb 12.9
Hct 37.4
Plt Count 228
Sodium 134 L
Potassium 3.9
Chloride 105
Carbon Dioxide 22
BUN 22 H
Creatinine 0.5 L
Glucose 94
Calcium 9.1
Vital Signs:
Vital Signs
Temp Pulse Resp BP Pulse Ox
98.6 F 67 18 150/53 96
05/12/25 07:15 05/12/25 04:23 05/12/25 07:15 05/12/25 04:23 05/12/25 07:15
I&O
05/11/25 05/12/25 05/13/25
06:59 06:59 06:59
Intake Total 360 / 360
Output Total 1250 / 1250
Balance -890 / -890
--- NOTE | 2025-05-12 08:37 | W.DCSUMMARY ---
Discharge Summary
Discharge Data
Date of Admission: 05/10/25
Date of Discharge: 05/12/25
Total time spent discharging patient (in min): 35
-
Pending Results: No
Hospital Course
Patient 84 years old female with history of hypertension, hyperlipidemia, chronic back pain, came into the hospital with dysuria hematuria and fevers and shortness of breath and lower extremity edema. Patient was on antibiotics prior to admission
for possible urinary tract infection. Patient was treated with IV antibiotics. She also had a CT scan that showed some gas in the bladder lumen and a follow-up CT scan after antibiotic therapy shows improvement and gas no evidence on follow-up CT.
Patient's symptoms also improved. Her urine culture was no growth but very likely due to the fact that she was taking antibiotics prior to cultures during this hospitalization since her clinical picture is very consistent with UTI. She does have
a urology as outpatient and we recommend her to follow-up with her urologist for further evaluation in light of recurrent UTIs. Patient also had hyponatremia which was most likely related to hydrochlorothiazide and this was discontinued. Sodium
improved substantially and back to close to baseline. Her random cortisol level was 12.6 which was relatively decent, her TSH 4.7 and free T4 1.1 likely related to sick euthyroid syndrome and no need to treat and follow-up thyroid function test as
outpatient in about 6 weeks. Her urine sodium was 8, urine creatinine 117, urine osmolality 300, serum osmolality 273. Patient also had a chest x-ray with evidence of fluid overload and BNP 455 with normal troponin. Cardiology consulted. She was
diuresed intravenously. She had a follow-up chest x-ray that showed improvement. She also had an echocardiogram that showed normal ejection fraction of 59% and no other significant abnormalities. There was some concerns about interstitial lung
disease but chest x-ray with improvement hard to justify although for further clarification she could have a high-resolution CT scan of the chest outpatient if warranted. Otherwise, patient is hemodynamically stable, she is not short of breath, her
peripheral edema improved, she is off oxygen, she is afebrile, she does not have any urinary tract symptoms. Her sodium and her blood pressure improved. She is eager to go home today. Cardiology has cleared her for discharge. She is going to be
discharged in stable condition today.
Discharge duration: 35 minutes
Discharge Plan
-
Patient Disposition: Home (Routine Discharge)
Discharge Diagnosis/Procedures: Urinary tract infection. Hyponatremia. Acute diastolic congestive heart failure. Probable interstitial lung disease.
Diet: Low Cholesterol
Activity: As tolerated
Blood Work: Please PCP to order CBC, BMP within 1 week
Specialty Instructions: Weigh Daily- Call MD for wt gain/loss 3 lbs overnight/5 lbs in 1 week
Referrals:
Raul Sanchez DO [Family Provider, Family Practice] - in less than 1 week
Aurea Carson PA-C [Specified Professional Personl, Cardiology] - 05/24/25 8:40 am
Referral Note: You have a follow up visit with Dr. Durand's Physician nurses medical assistants phlebotomists, Aurea Carson, at the [facility]. Please call with questions.
Additional Discharge Medication Instructions: STOP hydrochlorothiazide, as you are now on lasix!
Prescriptions:
New
furosemide 40 mg Tablet
40 mg PO DAILY 30 Days Qty: 30 0RF
cephalexin 500 mg Capsule
500 mg PO BID 5 Days Qty: 10 0RF
Continued
losartan 50 mg Tablet
100 mg PO QPM
tretinoin 0.1 % Cream
1 applic TOPICAL HS
Rx Instructions:
to the face
triamcinolone acetonide 0.1 % Cream
1 applic TOPICAL BID
tacrolimus 0.1 % Ointment
1 applic TOPICAL DAILY PRN (Reason: as needed)
epinephrine [EpiPen] 0.3 mg/0.3 mL Auto-Injector
0.3 mg IM ONCE PRN (Reason: anaphylaxis)
estradiol 0.01 % (0.1 mg/gram) Cream
1 appful VAGINAL DAILY
atenolol 50 mg Tablet
50 mg PO BID
rosuvastatin 5 mg Tablet
5 mg PO DAILY
cholecalciferol (vitamin D3) [Vitamin D3] 50 mcg (2,000 unit) Tablet
50 mcg PO DAILY
Rx Instructions:
plus 3x week
Centrum Silver Women 8 mg iron-400 mcg-50 mcg Tablet
1 tab PO DAILY
diltiazem HCl 120 mg Capsule,Extended Release 24 Hr
120 mg PO BID
Discontinued
nitrofurantoin macrocrystal 100 mg Capsule
100 mg PO BID
Rx Instructions:
x 1 week starting 05/08/25
hydrochlorothiazide 25 mg Tablet
25 mg PO DAILY
Discharge Orders:
Discharge Patient (As Directed); Ordered 05/12/25
Ordered By: Kush Carmona
Care Plan Goals
Care Plan Goals:
Problem: Readiness for enhanced knowledge related to diagnosis and treatment plan
Goal: Understand your diagnosis and treatment plan needs, including medications if applicable.
Instructions: Know your diagnosis, underlying causes and treatment plan options, including medications if applicable. Consult with your health care team to learn about your diagnosis and treatment plan, including medications if applicable.
Discharge Date and Time
Discharge Date/Time: 05/12/25 13:36
Print Language: GREEK
[2025-05-12 08:43] VITALS: BP 155/62
--- NOTE | 2025-05-12 10:18 | W.PN.CARDCBS ---
Addendum entered and electronically signed by Abdifatah Mcgraw DO 05/12/25 11:55:
I saw and examined the patient.
The Top Dyeing Machine Tender's note was reviewed and I agree with the note.
Comment:
Plan:
Stable for d/c
Reviewed her meds
Meds for discharge:
Atenolol 50 mg twice daily
Cozaar 100 mg daily
Diltiazem 120 mg twice daily
Lasix 40 mg daily
No HCTZ
BMP in 1 week
Outpatient cardiac follow-up arranged
Original Note:
Today's Communication / Plan
-
Meds for discharge:
Atenolol 50 mg twice daily
Cozaar 100 mg daily
Diltiazem 120 mg twice daily
Lasix 40 mg daily
No HCTZ
BMP in 1 week
Outpatient cardiac follow-up arranged
Impression / Plan
-
PCP: Dr. Sanchez
Emergency Department Coordinator: None prior to admission, initially seen by Dr. EVANS Durand
Impression:
Presented 05/09/2025 with dysuria, fever
LE edema
Hyponatremia
Suspected acute heart failure preserved EF
HTN
HLD
Scoliosis
Echo 05/10/2025: EF 59%. Normal RV size and systolic function. Trace AI, MR and TR.
Plan:
- Patient being treated for UTI per primary service
- Also had a noted lower extremity edema. There was concern for component of acute heart failure. Also with hyponatremia on arrival. Outpatient HCTZ was stopped in favor of Lasix 40 mg daily
- Denies shortness of breath. Creatinine stable
- Check BMP in 1 week as outpatient
- she is not a candidate for SGLT2 inhibitor due to frequent UTIs
- Echocardiogram as noted above shows preserved ejection fraction and no significant valve disease
- remains in SR on review of tele overnight. no CP. trop negative
- if BPs were to remain elevated in OP setting, could consider addition of spironolactone. patient hesitant to make additional changes to regimen at this time as she plans to travel to [place] for several days over the holiday.
- Plasma renin and Roney level pending
- will arrange OP cardiac follow up
- ok for DC to home today
- discussed following daily weights and BPs in OP setting
- d/w nursing. d/w hospitalist via TT
HPI: Florence is an 84 year old female with PMH of HTN, HLD, and scoliosis who presented to [facility] ER for evaluation of dysuria, hematuria, and fever. She had been seen by her PCP who started her on macrobid, but with fever, she came to ER for
evaluation. Also has noted a few weeks of increased LE edema. She states this started after she traveled to [facility] for [place]. Initially felt it may have been related to a long day of travel but as edema persisted, when seen by PCP,
she was started on lasix 20mg daily in addition to her usual HCTZ. With this, she noted no significant improvement in her edema, and after 1 week was told to stop taking lasix. She also has been keeping her legs elevated and using compression
stockings without significant improvement. Denies noting SOB, but reports she does not exert herself significantly. No prior cardiac history and has never been seen by cardiology. Chest xray checked this admission and noted moderate pulmonary edema.
ProBNP 455. Cardiology consulted for evaluation of possible heart failure.
Progress Note - Emergency Department Coordinator
Subjective
Date of Service: May 12, 2025
feeling well. eager for DC
Objective
Labs:
05/12/25 04:28
05/12/25 04:28
Labs
Hgb 12.9 g/dL (12.0-16.0) 05/12/25 04:28
Hct 37.4 % (37.0-47.0) 05/12/25 04:28
Plt Count 228 10^3/uL (130-400) 05/12/25 04:28
Sodium 134 mmol/L (135-145) L 05/12/25 04:28
Potassium 3.9 mmol/L (3.5-5.1) 05/12/25 04:28
BUN 22 mg/dl (7-17) H 05/12/25 04:28
Creatinine 0.5 mg/dL (0.6-1.0) L 05/12/25 04:28
Glucose 94 mg/dl (70-99) 05/12/25 04:28
Troponins
05/11/25
04:49
Troponin I < 0.012
Vital Signs and I&O:
Vital Signs
Temp Pulse Resp BP Pulse Ox
98.6 F 67 18 150/53 96
05/12/25 07:15 05/12/25 04:23 05/12/25 07:15 05/12/25 04:23 05/12/25 07:15
Vital Signs
Temp Pulse Resp BP Pulse Ox
98.6 F 67 18 150/53 96
05/12/25 07:15 05/12/25 04:23 05/12/25 07:15 05/12/25 04:23 05/12/25 07:15
Intake & Output
05/10/25 05/11/25 05/12/25 05/13/25
07:59 07:59 07:59 07:59
Intake Total 360 / 360
Output Total 1250 / 1250
Balance -890 / -890
Physical Exam
Physical Exam
GEN: No distress, awake, alert, oriented x3. Sitting in chair
HEENT: supple, anicteric, mmm, EOMI
LUNGS: CTA bilaterally, no wheezes/rales
CV: Reg, S1/S2, no murmur
ABD: soft, BS+, NT/ND
EXT: No cyanosis, clubbing, Edema
NEURO: Gross non-focal
SKIN: warm, pink, dry. No rash
[2025-05-12 11:38] VITALS: BP 119/80
--- NOTE | 2025-05-12 12:19 | PTCARENOTE ---
Pt was ordered for discharge to home. Instructions were given including follow up labs and appointments. Pt's home medication were delivered by pharmacy and returned to pt prior to leaving. Pt was transferred to [facility] via wheelchair. vehicle monitor technician
and iv removed prior to leaving.
[2025-05-14 09:32] LABS: Aldosterone/Renin Activ Ratio 46.4 ratio (<=25.0); Renin Activity Results 0.2 ng/mL/hr
== END 2025-05-12 13:36 | disposition home or self-care (01) | DRG 689 ==
LOC: IVU 01:17
PROVIDERS: Student in an Organized Health Care Education/Training Program; ADMITTING PHYSICIAN Hospitalist; ATTENDING PHYSICIAN Hospitalist; CONSULT PHYSICIAN Internal Medicine Cardiovascular Disease; EMERGENCY PHYSICIAN Emergency Medicine; FAMILY PHYSICIAN Student in an Organized Health Care Education/Training Program
DX: N39.0 Urinary tract infection, site not specified (principal); I50.31 Acute diastolic (congestive) heart failure; E87.1 Hypo-osmolality and hyponatremia; J84.9 Interstitial pulmonary disease, unspecified; I11.0 Hypertensive heart disease with heart failure; R31.9 Hematuria, unspecified; I70.0 Atherosclerosis of aorta; E78.5 Hyperlipidemia, unspecified; E07.81 Sick-euthyroid syndrome; M54.9 Dorsalgia, unspecified; G89.29 Other chronic pain; Z60.2 Problems related to living alone; Z87.440 Personal history of urinary (tract) infections; Z88.1 Allergy status to other antibiotic agents; Z98.1 Arthrodesis status; Z88.8 Allergy status to other drugs, medicaments and biological substances; Z91.030 Bee allergy status
CPT/HCPCS: 71045; 71046; 74176; 80048; 80053; 80061; 81003; 81015; 82088; 82533; 82570; 83605; 83735; 83880; 83930; 83935; 84244; 84300; 84439; 84443; 84484; 85025; 85027; 87040; 87086; 93005; 93306; 99285